=== PATIENT | female | born 1930 | race Caucasian/White ===

== ENCOUNTER 2016-06-13 | Inpatient (IN) | payer MEDICARE, BC ==
[~2016-06-13] MED LIST: ACETAMINOPHEN500 M4 PO; ACID CONTROL150 M2 PO; ACIDOPHILUS PROB1 MG PO; ALLOPURINOL300 M1 PO; ALPRAZOLAM0.25 M3 PO; ANALGESIC BALM30 G2 TOP; ATROVENT HFA1 PUFF INH; CALCIUM 600 +1 EA17 PO; CARAFATE1 G2 PO; CHOLESTYRAMINE P4 GM PO; CLARITIN10 M8 PO; COUMADIN1 M1 PO; COUMADIN2.5 M1 PO; CULTURELLE1 EAC1 PO; CYCLOBENZAPRINE10 M1 PO; FAMOTIDINE20 M3 PO; FLOMAX0.4 M1 PO; FLONASE ALLERG9.9 ML; FUROSEMIDE40 M2 PO; HUMIRA20 MG/0.1 SQ; LASIX20 M1 PO; MUCINEX600 M1 PO; MULTIVITAMINS1 EAC6 PO; NORCO 5-325 TA1 EACH PO; NYSTOP60 GM TOP; POTASSIUM CHLO10 ME1 PO; PREVALITE PACKET4 GM PO; SODIUM BICARBO650 M1 PO; TRAMADOL HCL50 M2 PO; TRAMADOL-ACETA1 EAC1 PO; TYLENOL325 M2 PO; URECHOLINE25 M2 PO
[2016-06-13] MEDS ORDERED: URECHOLINE25 M2 PO (05:13)
[2016-06-13] MEDS ORDERED: ULTRAM50 M1 PO (05:13)
[2016-06-13] MEDS ORDERED: PEPTO-BISMOL T262 M2 PO (05:15)
[2016-06-13] MEDS ORDERED: LASIX40 M1 PO (05:15)
[2016-06-13] MEDS ORDERED: LOPERAMIDE2 M2 PO (05:16)
[2016-06-13] MEDS ORDERED: FLOMAX0.4 M1 PO (05:17)
[2016-06-13] MEDS ORDERED: COUMADIN1 M1 PO (05:17)
[2016-06-13] MEDS ORDERED: MELATONIN5 M7 PO (05:18)
[2016-06-13] MEDS ORDERED: CALCIUM PO (05:19)
[2016-06-13] MEDS ORDERED: POTASSIUM CHLO20 ME3 PO (05:20)
[2016-06-13] MEDS ORDERED: CLARITIN10 M6 PO (05:21)
[2016-06-13] MEDS ORDERED: ALLOPURINOL100 M1 PO (05:21)
[2016-06-13] MEDS ORDERED: FLONASE ALLERG9.9 ML (05:21)
[2016-06-13] MEDS ORDERED: MULTIVITAMINS1 EAC7 PO (05:24)
[2016-06-13] MEDS ORDERED: ACID CONTROL150 M2 PO (05:25)
[2016-06-13] MEDS ORDERED: METOLAZONE2.5 M1 PO (05:26)
[2016-06-13] MEDS ORDERED: ALDACTONE50 M1 PO (05:28)
[2016-06-13] MEDS ORDERED: GUAIFENESIN200 M3 PO (05:28)
[2016-06-13] MEDS ORDERED: CULTURELLE1 EAC1 PO (05:28)
[2016-06-13] MEDS ORDERED: CARAFATE1 G2 PO (05:29)
[2016-06-13] MEDS ORDERED: SODIUM BICARBO650 M1 PO (05:29)
[2016-06-13] MEDS ORDERED: HYDROCODON-ACE1 EA16 PO (05:30)
[2016-06-13] MEDS ORDERED: CYCLOBENZAPRINE10 M1 PO (05:30)
[2016-06-13] MEDS ORDERED: XANAX0.25 M1 PO (05:31)
[2016-06-13] MEDS ORDERED: COMBIVENT RESPIM4 G1 (05:32)
[2016-06-13] MEDS ORDERED: IPRAT-ALBUT 0.5-3 ML INH (05:33)
[2016-06-14] MEDS ORDERED: LASIX40 M1 PO (13:16)
[2016-06-14] MEDS ORDERED: HALLS PO (16:30)
[2016-06-14] MEDS ORDERED: NYAMYC15 GM TOP (16:35)
[2016-06-14] MEDS ORDERED: PREVALITE PACKET4 GM PO (16:37)
[2016-06-14] MEDS ORDERED: SINGULAIR10 M1 PO (16:38)
[2016-06-14] MEDS ORDERED: ULTRAM50 M1 PO (16:40)
[2016-09-13] MEDS ORDERED: COUMADIN1 M1 PO ×2 (10:43→12:36)
[2016-09-13] MEDS ORDERED: FLUOXETINE HCL10 M1 PO (10:43)
[2016-09-13] MEDS ORDERED: PREDNISONE10 M1 PO ×2 (10:44→12:35)
[2016-09-13] MEDS ORDERED: ZYLOPRIM100 M1 PO (12:29)
[2016-09-13] MEDS ORDERED: URECHOLINE25 M2 PO (12:29)
[2016-09-13] MEDS ORDERED: CALCIUM 600 +1 EA12 PO (12:29)
[2016-09-13] MEDS ORDERED: XANAX0.25 M1 PO (12:29)
[2016-09-13] MEDS ORDERED: CHOLESTYRAMINE P4 GM PO (12:30)
[2016-09-13] MEDS ORDERED: CULTURELLE1 EAC1 PO (12:30)
[2016-09-13] MEDS ORDERED: IPRAT-ALBUT 0.5-3 ML NEB (12:31)
[2016-09-13] MEDS ORDERED: CYCLOBENZAPRINE10 M1 PO (12:31)
[2016-09-13] MEDS ORDERED: FLONASE ALLERG9.9 ML (12:31)
[2016-09-13] MEDS ORDERED: DULCOLAX10 MG PR (12:31)
[2016-09-13] MEDS ORDERED: LASIX40 M1 PO (12:31)
[2016-09-13] MEDS ORDERED: LOPERAMIDE2 M2 PO (12:32)
[2016-09-13] MEDS ORDERED: MELATONIN5 M5 PO (12:32)
[2016-09-13] MEDS ORDERED: METOLAZONE2.5 M1 PO (12:32)
[2016-09-13] MEDS ORDERED: GUAIFENESIN200 M3 PO (12:32)
[2016-09-13] MEDS ORDERED: COUGH MM (12:32)
[2016-09-13] MEDS ORDERED: MILK OF MAGNESIA PO (12:33)
[2016-09-13] MEDS ORDERED: WOMEN'S MULTI200 MCG PO (12:33)
[2016-09-13] MEDS ORDERED: SINGULAIR10 M1 PO (12:33)
[2016-09-13] MEDS ORDERED: POTASSIUM CHLO20 ME3 PO (12:33)
[2016-09-13] MEDS ORDERED: NYAMYC15 GM TP (12:33)
[2016-09-13] MEDS ORDERED: SODIUM BICARBO650 M1 PO (12:35)
[2016-09-13] MEDS ORDERED: ALDACTONE50 M1 PO (12:35)
[2016-09-13] MEDS ORDERED: ULTRAM50 M1 PO (12:35)
[2016-09-13] MEDS ORDERED: RANITIDINE HCL150 M2 PO (12:35)
[2016-09-13] MEDS ORDERED: FLOMAX0.4 M1 PO (12:35)
[2016-09-17] MEDS ORDERED: CEFDINIR300 M1 PO (16:02)
[2016-09-25] MEDS ORDERED: PROZAC20 M3 PO (06:06)
[2016-09-25] MEDS ORDERED: CORTEF20 M1 PO (06:07)
[2016-09-27] MEDS ORDERED: [UNRECOGNIZED DRUG - REMARK] (12:34)
[2016-09-27] MEDS ORDERED: BACITRACIN28.4 G2 TP (12:36)
[2016-09-27] MEDS ORDERED: [UNRECOGNIZED DRUG - REMARK] (12:40)
[2016-09-27] MEDS ORDERED: LASIX40 M1 PO (12:43)
[2016-09-27] MEDS ORDERED: ALDACTONE25 M1 PO (12:44)
[2016-09-27] MEDS ORDERED: AMOXICILLIN250 M1 PO (13:09)
== END 2016-06-17 16:10 | DRG 150 ==
DX: R04.0 Epistaxis (principal); G93.40 Encephalopathy, unspecified; N17.9 Acute kidney failure, unspecified; D68.9 Coagulation defect, unspecified; I24.8 Other forms of acute ischemic heart disease; E87.1 Hypo-osmolality and hyponatremia; D62 Acute posthemorrhagic anemia; E86.0 Dehydration; I48.0 Paroxysmal atrial fibrillation; I12.9 Hypertensive chronic kidney disease with stage 1 through stage 4 chronic kidney disease, or unspecified chronic kidney disease; D69.6 Thrombocytopenia, unspecified; J44.9 Chronic obstructive pulmonary disease, unspecified; Z86.711 Personal history of pulmonary embolism; W06.XXXA Fall from bed, initial encounter; Y92.013 Bedroom of single-family (private) house as the place of occurrence of the external cause; Z79.01 Long term (current) use of anticoagulants; G89.29 Other chronic pain; I71.4 Abdominal aortic aneurysm, without rupture; K21.9 Gastro-esophageal reflux disease without esophagitis; E78.5 Hyperlipidemia, unspecified; G47.33 Obstructive sleep apnea (adult) (pediatric); N18.9 Chronic kidney disease, unspecified; I27.2 Other secondary pulmonary hypertension; Z95.0 Presence of cardiac pacemaker; Z88.0 Allergy status to penicillin; Z88.2 Allergy status to sulfonamides; Z88.8 Allergy status to other drugs, medicaments and biological substances; Z87.891 Personal history of nicotine dependence; D72.829 Elevated white blood cell count, unspecified; R73.9 Hyperglycemia, unspecified; E87.6 Hypokalemia; K52.89 Other specified noninfective gastroenteritis and colitis; Z66 Do not resuscitate; J45.909 Unspecified asthma, uncomplicated; Z87.11 Personal history of peptic ulcer disease

== ENCOUNTER 2016-07-21 17:09 | Observation (INO) | payer MEDICARE, BC ==
[~2016-07-21 17:09] MED LIST changes: +ALDACTONE50 M1 PO; +ALLOPURINOL100 M1 PO; +CALCIUM PO; +CLARITIN10 M6 PO; +COMBIVENT RESPIM4 G1; +GUAIFENESIN200 M3 PO; +HALLS PO; +HYDROCODON-ACE1 EA16 PO; +IPRAT-ALBUT 0.5-3 ML INH; +LASIX40 M1 PO; +LOPERAMIDE2 M2 PO; +MELATONIN5 M7 PO; +METOLAZONE2.5 M1 PO; +MULTIVITAMINS1 EAC7 PO; +NYAMYC15 GM TOP; +PEPTO-BISMOL T262 M2 PO; +POTASSIUM CHLO20 ME3 PO; +SINGULAIR10 M1 PO; +ULTRAM50 M1 PO; +XANAX0.25 M1 PO
[2016-07-21 18:58] LABS: URINE APPEARANCE CLEAR; URINE BILIRUBIN NEGATIVE (NEG); URINE BLOOD LARGE (NEG); URINE COLOR YELLOW; URINE GLUCOSE (UA) NEGATIVE (NEG); URINE KETONE NEGATIVE (NEG); URINE LEUKOCYTE ESTERASE NEGATIVE (NEG); URINE NITRITE NEGATIVE (NEG); URINE PROTEIN MODERATE (NEG)
[2016-07-21 19:12] LABS: URINE AMORPHOUS 2+; URINE EPITHELIAL CELLS 0-1 /[HPF] (0-10); URINE RBC 0-1 /[HPF] (0-5); URINE WBC 0-1 /[HPF] (0-5)
[2016-07-21 19:15] LABS: BASO % 0.4 % (0-2); EOSINOPHIL ABSOLUTE COUNT 0.2 tho/cmm (0.0-0.7); HCT-HEMATOCRIT 29.2 % (34.0-49.0); HGB-HEMOGLOBIN 9.4 gm/dl (12.0-15.5); IMMATURE GRANULOCYTES ABSOLUTE 0.02 tho/cmm (0-0.03); IMMATURE GRANULOCYTES PERCENT 0.3 % (0-0.3); LYMPH % 14.9 % (20-45); LYMPH ABSOLUTE COUNT 1.1 tho/cmm (0.8-4.5); MCH (MEAN CORPUSCULAR HGB) 27.1 pg (28.0-32.0); MCHC MEAN CORPUSCULAR HGB CONC 32.2 % (32.0-36.0); MCV (MEAN CELL VOLUME) 84.1 fl (82.0-96.0); MEAN PLATELET VOLUME 8.5 cmc (9.4-12.4); MONO % 12.9 % (0-12); NEUTROPHIL ABSOLUTE COUNT 5.1 tho/cmm (1.6-8.0); NEUTROPHIL-AUTOMATED 5.1 tho/cmm (1.6-8.0); NEUTROPHILS % 68.5 % (40-80); PLATELET COUNT 201 tho/cmm (150-450); RED BLOOD COUNT 3.47 mil/cmm (4.00-5.20); RED CELL DISTRIBUTION WIDTH 16.6 % (12.4-16.4); WHITE BLOOD COUNT 7.4 tho/cmm (4.0-10.0)
[2016-07-21 19:19] LABS: INR 0.9 INR (0.9-1.1); PROTHROMBIN TIME 10.5 SECONDS (9.0-13.6)
[2016-07-21 19:26] LABS: ANION GAP 14 mmol/L (0-20); BLOOD UREA NITROGEN 79 mg/dl (6-24); CALCIUM 9.5 mg/dl (8.5-10.5); CARBON DIOXIDE-VENOUS 25 mmol/L (22-32); CHLORIDE 100 mmol/l (96-110); CREATININE 2.23 mg/dl (0.50-1.10); GLUCOSE 73 mg/dL (70-110); SODIUM 135 mmol/L (135-145); eGFR VALUE FOR BLACK 23 mL/Min
[2016-07-22 04:30] LABS: INR 0.9 INR (0.9-1.1); PROTHROMBIN TIME 10.9 SECONDS (9.0-13.6)
[2016-07-22 04:38] LABS: ANION GAP 15 mmol/L (0-20); BLOOD UREA NITROGEN 73 mg/dl (6-24); CALCIUM 9.2 mg/dl (8.5-10.5); CARBON DIOXIDE-VENOUS 24 mmol/L (22-32); CHLORIDE 99 mmol/l (96-110); CREATININE 2.15 mg/dl (0.50-1.10); GLUCOSE 91 mg/dL (70-110); POTASSIUM 3.3 mmol/L (3.7-5.1); SODIUM 135 mmol/L (135-145); eGFR VALUE FOR BLACK 24 mL/Min
[2016-07-22 13:33] LABS: URINE PRT/CR RATIO 0.56 Ratio (0.0-0.20)
[2016-07-22] MEDS ORDERED: METOLAZONE2.5 M1 PO (14:40)
[2016-07-23 04:57] LABS: ANION GAP 15 mmol/L (0-20); BLOOD UREA NITROGEN 79 mg/dl (6-24); CALCIUM 8.8 mg/dl (8.5-10.5); CARBON DIOXIDE-VENOUS 23 mmol/L (22-32); CHLORIDE 97 mmol/l (96-110); CREATININE 2.22 mg/dl (0.50-1.10); GLUCOSE 90 mg/dL (70-110); POTASSIUM 3.4 mmol/L (3.7-5.1); SODIUM 132 mmol/L (135-145); eGFR VALUE FOR BLACK 23 mL/Min
[2016-07-23 05:03] LABS: BASO % 0.6 % (0-2); EOS % 4.2 % (0-7); EOSINOPHIL ABSOLUTE COUNT 0.2 tho/cmm (0.0-0.7); HCT-HEMATOCRIT 26.6 % (34.0-49.0); HGB-HEMOGLOBIN 8.5 gm/dl (12.0-15.5); IMMATURE GRANULOCYTES ABSOLUTE 0.01 tho/cmm (0-0.03); IMMATURE GRANULOCYTES PERCENT 0.2 % (0-0.3); LYMPH % 19.9 % (20-45); MCH (MEAN CORPUSCULAR HGB) 26.6 pg (28.0-32.0); MCV (MEAN CELL VOLUME) 83.1 fl (82.0-96.0); MEAN PLATELET VOLUME 9.3 cmc (9.4-12.4); MONO % 10.5 % (0-12); MONOCYTE ABSOLUTE COUNT 0.5 tho/cmm (0.0-1.2); NEUTROPHIL ABSOLUTE COUNT 3.3 tho/cmm (1.6-8.0); NEUTROPHIL-AUTOMATED 3.3 tho/cmm (1.6-8.0); NEUTROPHILS % 64.6 % (40-80); PLATELET COUNT 199 tho/cmm (150-450); RED CELL DISTRIBUTION WIDTH 16.6 % (12.4-16.4)
[2016-07-23 05:04] LABS: INR 0.9 INR (0.9-1.1); PROTHROMBIN TIME 10.7 SECONDS (9.0-13.6)
[2016-09-13] MEDS ORDERED: FLUOXETINE HCL10 M1 PO (10:43)
[2016-09-13] MEDS ORDERED: COUMADIN1 M1 PO ×2 (10:43→12:36)
[2016-09-13] MEDS ORDERED: PREDNISONE10 M1 PO ×2 (10:44→12:35)
[2016-09-13] MEDS ORDERED: XANAX0.25 M1 PO (12:29)
[2016-09-13] MEDS ORDERED: URECHOLINE25 M2 PO (12:29)
[2016-09-13] MEDS ORDERED: ZYLOPRIM100 M1 PO (12:29)
[2016-09-13] MEDS ORDERED: CALCIUM 600 +1 EA12 PO (12:29)
[2016-09-13] MEDS ORDERED: CULTURELLE1 EAC1 PO (12:30)
[2016-09-13] MEDS ORDERED: CHOLESTYRAMINE P4 GM PO (12:30)
[2016-09-13] MEDS ORDERED: FLONASE ALLERG9.9 ML (12:31)
[2016-09-13] MEDS ORDERED: LASIX40 M1 PO (12:31)
[2016-09-13] MEDS ORDERED: DULCOLAX10 MG PR (12:31)
[2016-09-13] MEDS ORDERED: IPRAT-ALBUT 0.5-3 ML NEB (12:31)
[2016-09-13] MEDS ORDERED: CYCLOBENZAPRINE10 M1 PO (12:31)
[2016-09-13] MEDS ORDERED: MELATONIN5 M5 PO (12:32)
[2016-09-13] MEDS ORDERED: GUAIFENESIN200 M3 PO (12:32)
[2016-09-13] MEDS ORDERED: COUGH MM (12:32)
[2016-09-13] MEDS ORDERED: LOPERAMIDE2 M2 PO (12:32)
[2016-09-13] MEDS ORDERED: METOLAZONE2.5 M1 PO (12:32)
[2016-09-13] MEDS ORDERED: NYAMYC15 GM TP (12:33)
[2016-09-13] MEDS ORDERED: MILK OF MAGNESIA PO (12:33)
[2016-09-13] MEDS ORDERED: WOMEN'S MULTI200 MCG PO (12:33)
[2016-09-13] MEDS ORDERED: POTASSIUM CHLO20 ME3 PO (12:33)
[2016-09-13] MEDS ORDERED: SINGULAIR10 M1 PO (12:33)
[2016-09-13] MEDS ORDERED: ULTRAM50 M1 PO (12:35)
[2016-09-13] MEDS ORDERED: RANITIDINE HCL150 M2 PO (12:35)
[2016-09-13] MEDS ORDERED: FLOMAX0.4 M1 PO (12:35)
[2016-09-13] MEDS ORDERED: ALDACTONE50 M1 PO (12:35)
[2016-09-13] MEDS ORDERED: SODIUM BICARBO650 M1 PO (12:35)
[2016-09-17] MEDS ORDERED: CEFDINIR300 M1 PO (16:02)
[2016-09-25] MEDS ORDERED: PROZAC20 M3 PO (06:06)
[2016-09-25] MEDS ORDERED: CORTEF20 M1 PO (06:07)
[2016-09-27] MEDS ORDERED: [UNRECOGNIZED DRUG - REMARK] (12:34)
[2016-09-27] MEDS ORDERED: BACITRACIN28.4 G2 TP (12:36)
[2016-09-27] MEDS ORDERED: [UNRECOGNIZED DRUG - REMARK] (12:40)
[2016-09-27] MEDS ORDERED: LASIX40 M1 PO (12:43)
[2016-09-27] MEDS ORDERED: ALDACTONE25 M1 PO (12:44)
[2016-09-27] MEDS ORDERED: AMOXICILLIN250 M1 PO (13:09)
== END 2016-07-23 15:31 ==
LOC: EDMED 17:09 → EMR2 07-22 01:10 → 5WF 07-22 01:40
PROVIDERS: Internal Medicine; Physician Assistant; ADMIT Family Medicine
PROC: 0HQKXZZ Repair Right Lower Leg Skin, External Approach (ICD-10-PCS; principal; 2016-07-21)
DX: S81.811A Laceration without foreign body, right lower leg, initial encounter (principal); F03.90 Unspecified dementia, unspecified severity, without behavioral disturbance, psychotic disturbance, mood disturbance, and anxiety; I27.2 Other secondary pulmonary hypertension; K52.89 Other specified noninfective gastroenteritis and colitis; I12.9 Hypertensive chronic kidney disease with stage 1 through stage 4 chronic kidney disease, or unspecified chronic kidney disease; N18.3 Chronic kidney disease, stage 3 (moderate); N17.9 Acute kidney failure, unspecified; Z66 Do not resuscitate; D63.1 Anemia in chronic kidney disease; I71.4 Abdominal aortic aneurysm, without rupture; I48.2 Chronic atrial fibrillation; R33.9 Retention of urine, unspecified; E78.5 Hyperlipidemia, unspecified; G47.33 Obstructive sleep apnea (adult) (pediatric); K21.9 Gastro-esophageal reflux disease without esophagitis; J44.9 Chronic obstructive pulmonary disease, unspecified; M10.9 Gout, unspecified; Z79.01 Long term (current) use of anticoagulants; Z79.899 Other long term (current) drug therapy; Z88.0 Allergy status to penicillin; Z88.1 Allergy status to other antibiotic agents; Z88.2 Allergy status to sulfonamides; Z88.5 Allergy status to narcotic agent; Z88.8 Allergy status to other drugs, medicaments and biological substances; Z87.891 Personal history of nicotine dependence; Z95.0 Presence of cardiac pacemaker; Z96.651 Presence of right artificial knee joint; Z90.49 Acquired absence of other specified parts of digestive tract; Z90.710 Acquired absence of both cervix and uterus; Z98.890 Other specified postprocedural states; W06.XXXA Fall from bed, initial encounter
CPT/HCPCS: G0378; G8978-GP-CK; G8979-GP-CJ; G8980-GP-CK; G8987-GO-CK; G8988-GO-CJ; G8989-GO-CK; J1630; J2270; J7030; J7040; J7050; P9612